=== PATIENT | female | born 1940 | race Caucasian/White ===

== ENCOUNTER 2020-09-15 11:45 | Emergency (ER) | payer OTHER ==
[~2020-09-15] VITALS: Ht 160 cm; Wt 85.7 kg
[2020-09-15 12:27] LABS: BASOPHILS ABSOLUTE AUTO 0.01 K/mm3 (0.00-0.23); BASOPHILS PERCENT AUTO 0 % (0-2); EOSINOPHILS PERCENT AUTO 0 % (0-6); Hematocrit 43.4 % (33.0-51.0); Hemoglobin 13.9 g/dL (11.5-16.0); IMMATURE GRAN ABSOLUTE AUTO 0.03 K/mm3 (0.00-0.10); IMMATURE GRAN PERCENT AUTO 0 % (0-1); LYMPHOCYTES ABSOLUTE AUTO 1.27 K/mm3 (0.84-5.20); LYMPHOCYTES PERCENT AUTO 16 % (21-46); MONOCYTES ABSOLUTE AUTO 0.69 K/mm3 (0.16-1.47); MONOCYTES PERCENT AUTO 9 % (4-13); Mean Corpuscular HGB 26.5 pg (26.0-34.0); Mean Corpuscular Volume 83 fL (80-100); Mean Platelet Volume 8.9 fL (9.1-12.4); NEUTROPHILS ABSOLUTE AUTO 5.88 K/mm3 (1.96-9.15); NEUTROPHILS PERCENT AUTO 75 % (41-73); Platelet Count 232 K/mm3 (150-400); RDW Coefficient Variation 13.1 % (11.7-14.2); Red Blood Cell Count 5.24 M/mm3 (3.80-5.20); White Blood Cell Count 7.88 K/mm3 (4.00-11.30)
[2020-09-15] MEDS ORDERED: ATORVASTATIN CA20 MG PO (12:30)
[2020-09-15] MEDS ORDERED: AMLODIPINE BESYL5 MG PO (12:30)
[2020-09-15] MEDS ORDERED: Zestril40 MG PO (12:31)
[2020-09-15] MEDS ORDERED: METO100ER PO (12:31)
[2020-09-15 12:41] LABS: Alanine Aminotransfer (ALT/SGP 32 U/L (12-78); Albumin/Globulin Ratio 0.8 (0.8-1.8); Alk Phos 70 U/L (50-136); Anion Gap 8 mmol/L (6-16); Aspartate Aminotrans (AST/SGOT 23 U/L (12-37); Bilirubin, Total 0.7 mg/dL (0.1-1.0); Blood Urea Nitrogen 11 mg/dL (8-24); Bun/Creatinine Ratio 17.2 (12.0-20.0); CO2, Blood 28 mmol/L (21-32); Calcium, Blood 7.9 mg/dL (8.5-10.1); Chloride, Blood 100 mmol/L (98-108); Creatinine, Blood 0.64 mg/dL (0.40-1.00); Globulin, Blood 3.8 g/dL (2.2-4.0); Glomerular Filtration Rate >60 (60-); Glucose, Blood 120 mg/dL (70-99); Potassium, Blood 3.4 mmol/L (3.5-5.5); Sodium, Blood 136 mmol/L (136-145); Total Protein, Blood 6.8 g/dL (6.4-8.2)
== END 2020-09-15 14:51 | disposition home or self-care (01) ==
LOC: ER 11:45
PROVIDERS: Emergency Medicine
DX: U07.1 COVID-19 (principal); E87.6 Hypokalemia; I10 Essential (primary) hypertension; E78.5 Hyperlipidemia, unspecified; Z88.8 Allergy status to other drugs, medicaments and biological substances; Z79.899 Other long term (current) drug therapy
CPT/HCPCS: 80053; 85025; 93005; 93010; 99285-25; A9270

== ENCOUNTER 2024-04-07 07:37 | Day surgery (SDC) | payer OTHER ==
[~2024-04-07] VITALS: Ht 162.6 cm; Wt 83.2 kg
[~2024-04-07 07:37] MED LIST: AMLODIPINE BESYL5 MG PO; ATORVASTATIN CA20 MG PO; Balanced Salt Epinephrine Irrigation Solution 500 mL IR SCH; Lidocaine HCl/Pf 1% 5 ML VIAL XX SCH; METO100ER PO; Moxifloxacin HCL 0.5 MG/0.1 ML 0.4MLSYR RIGHTEYE SCH; PHENYLEPHRINE\\TROPICAMIDE\\TETRACAINE OPHTHALMIC DILATING SOLN RIGHTEYE PRN; Povidone-Iodine 450 DROP/30 ML Solution ONE; Povidone-Iodine 450 DROP/30 ML Solution RIGHTEYE SCH; Tetracaine HCl/Pf 0.5% Opth Soln 4 ml ONE; Triamcinolone Inj Susp 40 MG / ML 1ML Vial INJ SCH; Triamcinolone Inj Susp 40 MG / ML 1ML Vial ONE; Zestril40 MG PO
[2024-04-07] MEDS ORDERED: Diazepam 2 MG Tab ONE (07:58)
--- NOTE | 2024-04-07 08:28 | NUR ---
04/07/24 0828 Urmila Cuevas 0802: PT REPORTS SHE TOOK HER RX 5 MG PO VALIUM AT HOME AT 0655 0815: PT REPORTS ANXIETY 05/02 822: VERBAL ORDER DR ESPITIA FOR ADDITIONAL 2 MG PO VALIUM NOW ONCE
[2024-04-07] MEDS ORDERED: METOPROLOL ER SUCCIN (08:38)
[2024-04-07] MEDS ORDERED: ALBUTEROL SULFATE HF (08:38)
[2024-04-07] MEDS ORDERED: Aspir 8181 MG PO (08:39)
[2024-04-07] MEDS ORDERED: CENTRUM SILVER1 EAC2 PO (08:41)
[2024-04-07] MEDS ORDERED: HydrALAZINE HCl 20 MG / ML 1ML Vial ONE (08:56)
[2024-04-07] MEDS ORDERED: Midazolam HCl 1MG / ML 2ML Vial ONE (08:58)
[2024-04-07] MEDS ORDERED: Tetracaine HCl 0.5% Opth Soln 15 ml RIGHTEYE ONE (08:58)
[2024-04-07 09:35] VITALS: BP 132/68
== END 2024-04-07 09:52 | disposition home or self-care (01) ==
LOC: ORSCSDS 07:37
PROVIDERS: Ophthalmology
PROC: 08RJ3JZ Replacement of Right Lens with Synthetic Substitute, Percutaneous Approach (ICD-10-PCS; principal; 2024-04-07 09:00)
DX: H25.813 Combined forms of age-related cataract, bilateral (principal); H21.81 Floppy iris syndrome; I10 Essential (primary) hypertension; E78.00 Pure hypercholesterolemia, unspecified; Z79.899 Other long term (current) drug therapy; Z79.82 Long term (current) use of aspirin
CPT/HCPCS: 82947; A9270; J0360; J2250; J3301; V2632

== ENCOUNTER 2024-04-20 08:58 | Day surgery (SDC) | payer OTHER ==
[~2024-04-20] VITALS: Ht 160 cm; Wt 82.0 kg
[~2024-04-20 08:58] MED LIST changes: +ALBUTEROL SULFATE HF; +Aspir 8181 MG PO; +CENTRUM SILVER1 EAC2 PO; +METOPROLOL ER SUCCIN; +Moxifloxacin HCL 0.5 MG/0.1 ML 0.4MLSYR LEFTEYE SCH; -Moxifloxacin HCL 0.5 MG/0.1 ML 0.4MLSYR RIGHTEYE SCH; +PHENYLEPHRINE\\TROPICAMIDE\\TETRACAINE OPHTHALMIC DILATING SOLN LEFTEYE PRN; -PHENYLEPHRINE\\TROPICAMIDE\\TETRACAINE OPHTHALMIC DILATING SOLN RIGHTEYE PRN; +Povidone-Iodine 450 DROP/30 ML Solution LEFTEYE SCH; -Povidone-Iodine 450 DROP/30 ML Solution RIGHTEYE SCH
[2024-04-20] MEDS ORDERED: Diazepam 2 MG Tab ONE (09:22)
[2024-04-20] MEDS ORDERED: HydrALAZINE HCl 20 MG / ML 1ML Vial ONE (09:45)
[2024-04-20] MEDS ORDERED: Amlodipine Bes2.5 MG PO (09:50)
[2024-04-20] MEDS ORDERED: Flonase 0.05% N16 GM (09:51)
--- NOTE | 2024-04-20 09:53 | NUR ---
ALLERGIC TO ETHER ANALPHALAXIS
[2024-04-20] MEDS ORDERED: NS 500 ML IV ONE (10:14)
[2024-04-20 10:28] VITALS: BP 121/51
--- NOTE | 2024-04-20 11:26 | NUR ---
04/20/24 1126 Frederick Mathur PT INSTRUCTED TO MONITOR B/P AT HOME AND FOLLOW UP WITH PCP/SHEEPSKIN PICKLER.
== END 2024-04-20 10:40 | disposition home or self-care (01) ==
LOC: ORSCSDS 08:58
PROVIDERS: Ophthalmology
PROC: 08RK3JZ Replacement of Left Lens with Synthetic Substitute, Percutaneous Approach (ICD-10-PCS; principal; 2024-04-20 10:30)
DX: E11.36 Type 2 diabetes mellitus with diabetic cataract (principal); H25.812 Combined forms of age-related cataract, left eye; Z96.1 Presence of intraocular lens; I10 Essential (primary) hypertension; Z79.82 Long term (current) use of aspirin; Z79.899 Other long term (current) drug therapy
CPT/HCPCS: 82947; A9270; J0360; J3301; J7040; V2632

== ENCOUNTER 2024-09-21 05:03 | Inpatient (IN) | payer OTHER ==
[2024-09-21] VITALS (7 sets, daily range): BP systolic 112–169; BP diastolic 81–107
[~2024-09-21] VITALS: Ht 162.6 cm; Wt 81.5 kg
[~2024-09-21 05:03] MED LIST changes: +Amlodipine Bes2.5 MG PO; -Balanced Salt Epinephrine Irrigation Solution 500 mL IR SCH; +Flonase 0.05% N16 GM; -Lidocaine HCl/Pf 1% 5 ML VIAL XX SCH; -METOPROLOL ER SUCCIN; +METOPROLOL ER SUCCIN PO; -Moxifloxacin HCL 0.5 MG/0.1 ML 0.4MLSYR LEFTEYE SCH; -PHENYLEPHRINE\\TROPICAMIDE\\TETRACAINE OPHTHALMIC DILATING SOLN LEFTEYE PRN; -Povidone-Iodine 450 DROP/30 ML Solution LEFTEYE SCH; -Povidone-Iodine 450 DROP/30 ML Solution ONE; -Tetracaine HCl/Pf 0.5% Opth Soln 4 ml ONE; -Triamcinolone Inj Susp 40 MG / ML 1ML Vial INJ SCH; -Triamcinolone Inj Susp 40 MG / ML 1ML Vial ONE
[2024-09-21] MEDS ORDERED: Diltiazem HCl 5 MG / ML 5ML Vial IV ONE (05:25)
[2024-09-21 05:38] LABS: BASOPHILS ABSOLUTE AUTO 0.03 K/mm3 (0.00-0.23); BASOPHILS PERCENT AUTO 1 % (0-2); EOSINOPHILS ABSOLUTE AUTO 0.10 K/mm3 (0.00-0.68); EOSINOPHILS PERCENT AUTO 2 % (0-6); Hematocrit 43.1 % (33.0-51.0); Hemoglobin 13.6 g/dL (11.5-16.0); IMMATURE GRAN ABSOLUTE AUTO 0.01 K/mm3 (0.00-0.10); IMMATURE GRAN PERCENT AUTO 0 % (0-1); LYMPHOCYTES ABSOLUTE AUTO 2.94 K/mm3 (0.84-5.20); LYMPHOCYTES PERCENT AUTO 45 % (21-46); MONOCYTES ABSOLUTE AUTO 0.50 K/mm3 (0.16-1.47); MONOCYTES PERCENT AUTO 8 % (4-13); Mean Corpuscular HGB Conc 31.6 g/dL (31.5-36.5); Mean Corpuscular Volume 85 fL (80-100); NEUTROPHILS ABSOLUTE AUTO 2.98 K/mm3 (1.96-9.15); NEUTROPHILS PERCENT AUTO 45 % (41-73); NRBC ABSOLUTE 0.00 K/mm3 (0.00-0.02); NRBC Auto 0.0 /100 WBC (0.0-0.2); Platelet Count 280 K/mm3 (150-400); RDW Coefficient Variation 13.2 % (11.7-14.2); RDW Standard Deviation 40.9 fL (35.1-46.3)
[2024-09-21 05:52] LABS: Alanine Aminotransfer (ALT/SGP 20.0 U/L (12-78); Albumin, Blood 3.2 g/dL (3.4-5.0); Albumin/Globulin Ratio 0.9 (0.8-1.8); Anion Gap 7.0 mmol/L (3-11); Aspartate Aminotrans (AST/SGOT 17.0 U/L (12-37); Bilirubin, Total 0.4 mg/dL (0.1-1.0); Blood Urea Nitrogen 13.0 mg/dL (8-24); CO2, Blood 27.0 mmol/L (21-32); Calcium, Blood 8.0 mg/dL (8.5-10.1); Chloride, Blood 110.0 mmol/L (98-108); Creatinine, Blood 0.73 mg/dL (0.40-1.00); Globulin, Blood 3.6 g/dL (2.2-4.0); Glucose, Blood 161.0 mg/dL (70-99); Potassium, Blood 3.5 mmol/L (3.5-5.5); Sodium, Blood 140.0 mmol/L (136-145); Total Protein, Blood 6.8 g/dL (6.4-8.2)
[2024-09-21] MEDS ORDERED: Enoxaparin 80 MG/0.8 ML SYR SC SCH (07:30)
--- NOTE | 2024-09-21 09:07 | NUR ---
ARRIVAL NOTE: PT ARRIVES TO UNIT AND WAS TRANSFFERED TO OUR BED BY AMBULATING WITH NURSE ASSIST AT BEDSIDE. VITAL SIGNS STABLE. PT DENIED CHEST PAIN/PRESSURE OR FEELING SHORT OF BREATH. SATTING >92% ON ROOM AIR. PATIENT HAS CALL LIGHT WITHIN REACH, BED IN LOWEST POSITION & STATING NOTHING ELSE IS NEEDED AT THIS TIME.
[2024-09-21] MEDS ORDERED: XDEMVY10 ML (09:17)
--- NOTE | 2024-09-21 13:55 | NUR ---
MD CONTACTED: THIS RN CONTACTED MD REGARDING PT MEDICATIONS BEING RECONCILLED. MD WAS ALSO NOTIFIED THAT PATIENT WOULD LIKE TO BE DNI. GAVE VERBAL ORDER TO CHANGE STATUS.
--- NOTE | 2024-09-21 15:59 | NUR ---
ROUNDED: ROUDNED ON PT TO NOTIFY ABOUT HER RECEIVING A BED AT [facility]. PETER AT BED WAS NOTIFIED WELL. PT AWARE WE ARE WAITING TRANSPORT AND ONCE THAT IS INTIATED THE TRANSFER SHOULD HAPPEN SHORTLY AFTER THAT.
--- NOTE | 2024-09-21 17:05 | NUR ---
SHIFT SUMMARY: PATIENT IS ALERT AND ORIETNED X4 & COOPERATIVE WITH HER CARE, IS ABLE TO MAKE NEEDS KNOW & USES CALL LIGHT APPROPRIATELY. SATTING >92% ON ROOM AIR. ON TELE SHOWING AFIB/FLUTTER WITH A DILT DRIP RUNNING AT 10. HEART RATE 90-120,OCCASIONALLY DOES TACH UP INTO 150-180 WHEN USING BEDSIDE COMMODE. PT HAD AN ECHO DONE, CHECK CHART FOR MORE RESULTS. PT UPDATED CODE STATUS AND IS NOW DNI. PT HAD FAMILY THROUGHOUT THE SHIFT. HAS CALL LIGHT WITHIN REACH, BED IN LOWEST POSITION & STATING NOTHIG ELSE IS NEEDED ATH THIS TIME.
[2024-09-22 03:54] VITALS: BP 129/91
[2024-09-22 04:00] LABS: BASOPHILS ABSOLUTE AUTO 0.05 K/mm3 (0.00-0.23); BASOPHILS PERCENT AUTO 1 % (0-2); EOSINOPHILS ABSOLUTE AUTO 0.08 K/mm3 (0.00-0.68); EOSINOPHILS PERCENT AUTO 1 % (0-6); Hematocrit 42.6 % (33.0-51.0); Hemoglobin 13.6 g/dL (11.5-16.0); IMMATURE GRAN ABSOLUTE AUTO 0.01 K/mm3 (0.00-0.10); IMMATURE GRAN PERCENT AUTO 0 % (0-1); LYMPHOCYTES ABSOLUTE AUTO 2.54 K/mm3 (0.84-5.20); LYMPHOCYTES PERCENT AUTO 35 % (21-46); MONOCYTES ABSOLUTE AUTO 0.54 K/mm3 (0.16-1.47); MONOCYTES PERCENT AUTO 8 % (4-13); Mean Corpuscular HGB Conc 31.9 g/dL (31.5-36.5); Mean Corpuscular Volume 84 fL (80-100); NEUTROPHILS ABSOLUTE AUTO 4.01 K/mm3 (1.96-9.15); NEUTROPHILS PERCENT AUTO 56 % (41-73); NRBC ABSOLUTE 0.00 K/mm3 (0.00-0.02); NRBC Auto 0.0 /100 WBC (0.0-0.2); Platelet Count 278 K/mm3 (150-400); RDW Coefficient Variation 13.2 % (11.7-14.2); RDW Standard Deviation 41.1 fL (35.1-46.3)
[2024-09-22 04:32] LABS: Anion Gap 7.0 mmol/L (3-11); Blood Urea Nitrogen 12.0 mg/dL (8-24); CO2, Blood 27.0 mmol/L (21-32); Calcium, Blood 8.1 mg/dL (8.5-10.1); Chloride, Blood 108.0 mmol/L (98-108); Creatinine, Blood 0.67 mg/dL (0.40-1.00); Glucose, Blood 138.0 mg/dL (70-99); Potassium, Blood 3.8 mmol/L (3.5-5.5); Sodium, Blood 138.0 mmol/L (136-145)
--- NOTE | 2024-09-22 05:13 | NUR ---
SHIFT SUMMARY - A/OX4, PLEASANT AND COOPERATIVE WITH CARE, FOLLOWS COMMANDS, ENDORSES MUSCULAR PAIN IN NECK AND SHOULDERS BUT DENIES NEED FOR MEDICATION. ON CONTINUOUS CARDIAC MONITORING, IN AFIB/FLUTTER, HR IN 80 S AT REST, UP TO 140 S WITH ACTIVITY. HR DROPPED TO 60 S, CARDIZEM DRIP TITRATED TO 5 AT 2134. PT DENIES CHEST PAIN/PRESSURE AT THIS TIME. ON RA, SATS ABOVE 95%. PT AMBULATING IN ROOM INDEPENDENTLY W/ SBA FOR LINE MANAGEMENT. LEFT WRIST IV INFILTRATED, SITE SWOLLEN, WARM, RED, IV REMOVED, NEW IV PLACED IN RIGHT WRIST. PHARMACY CONSULTED.
--- NOTE | 2024-09-22 07:16 | NUR ---
ASSUMPTION NOTE: THIS RN TO ASSUME CARE OF PT. PATIENT IS SITTING UP IN BED WATHCING TV. VITAL SIGNS STABLE AND DENIED ANY COMPLAINS OF CHEST PAIN/PRESSURE OR FEELING SHORT OF BREATH. HAS CALL LIGHT WITHIN REACH, BED IN LOWEST POSITION & STATING NOTHING ELSE IS NEEDED AT THIS TIME.
[2024-09-22 07:17] VITALS: BP 107/87
--- NOTE | 2024-09-22 08:55 | NUR ---
ROUNDED: ROUNDED,SPOKE WITH PT AND GAVE UPDATE ON INCREASING MEDICATION DOSE TO CONTROL HEART RATE. GAVE VERBAL ORDER TO TURN OFF DILT ONCE METOPROLOL GETS INTO SYSTEM. PT AWARE POSSIBLE DISCHARGE TODAY SOMETIME.
[2024-09-22] MEDS ORDERED: Multivitamins/Minerals 1 Tab PO SCH (09:00)
--- NOTE | 2024-09-22 12:00 | NUR ---
Spiritual care visit conducted. The patient is sitting up in bed and laert. She immediately tells me about her strong Jew layton and about how important it is to her especially in challenging medical situations. She talks about her solid orthodox support ([facility]) and how she has family and friends praying and pulling for her. 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 She clearly gains encouragement by hearing the scripture and prayer, both of which I supplied. I will continue to remain available to the patient and family.
--- NOTE | 2024-09-22 17:26 | NUR ---
SHIFT SUMMARY: PATIENT IS ALERT AND ORIENTED X4 AND USES CALL LIGHT APPROPRIATELY. ON TELE SHOWING AFIB/FLUTTER WITH RATE BETWEEN 90-150'S OCCASINALLY WHEN UP SHE DOES TACH UP. DENIES ANY SYMPTOMS WHEN HEART RATE INCREASES. SATTING >92% ON ROOM AIR. PATIENT WAS ABLE TO SHOWER TODAY,HAD VISIOTORS THROUGHOUT THE SHIFT. METOPROLOL WAS INCREASED TODAY TO 100MG FROM 50MG. AWARE THAT PLAN WILL BE LOOKING AT DISCHARGE TOMORROW. PATIENT IS NOW MEDICAL WITH TELE STATUS. HAS CALL LIGHT WITHIN REACH, BED IN LOWEST POSITION & STATING NOTHING ELSE IS NEEDED AT THIS TIME.
[2024-09-22 17:29] VITALS: BP 140/90
[2024-09-22 19:30] VITALS: BP 128/70
[2024-09-22 23:36] VITALS: BP 125/87
[2024-09-23 03:50] VITALS: BP 145/83
[2024-09-23 04:25] LABS: BASOPHILS ABSOLUTE AUTO 0.04 K/mm3 (0.00-0.23); BASOPHILS PERCENT AUTO 1 % (0-2); EOSINOPHILS ABSOLUTE AUTO 0.14 K/mm3 (0.00-0.68); EOSINOPHILS PERCENT AUTO 2 % (0-6); Hematocrit 44.1 % (33.0-51.0); Hemoglobin 13.9 g/dL (11.5-16.0); IMMATURE GRAN ABSOLUTE AUTO 0.00 K/mm3 (0.00-0.10); IMMATURE GRAN PERCENT AUTO 0 % (0-1); LYMPHOCYTES ABSOLUTE AUTO 2.83 K/mm3 (0.84-5.20); LYMPHOCYTES PERCENT AUTO 43 % (21-46); MONOCYTES ABSOLUTE AUTO 0.60 K/mm3 (0.16-1.47); MONOCYTES PERCENT AUTO 9 % (4-13); Mean Corpuscular HGB Conc 31.5 g/dL (31.5-36.5); Mean Corpuscular Volume 84 fL (80-100); NEUTROPHILS ABSOLUTE AUTO 2.91 K/mm3 (1.96-9.15); NEUTROPHILS PERCENT AUTO 45 % (41-73); NRBC ABSOLUTE 0.00 K/mm3 (0.00-0.02); NRBC Auto 0.0 /100 WBC (0.0-0.2); Platelet Count 288 K/mm3 (150-400); RDW Coefficient Variation 13.2 % (11.7-14.2); RDW Standard Deviation 40.9 fL (35.1-46.3)
[2024-09-23 04:41] LABS: Anion Gap 7.0 mmol/L (3-11); Blood Urea Nitrogen 17.0 mg/dL (8-24); CO2, Blood 26.0 mmol/L (21-32); Calcium, Blood 8.5 mg/dL (8.5-10.1); Chloride, Blood 107.0 mmol/L (98-108); Creatinine, Blood 0.77 mg/dL (0.40-1.00); Glucose, Blood 185.0 mg/dL (70-99); Potassium, Blood 4.4 mmol/L (3.5-5.5); Sodium, Blood 136.0 mmol/L (136-145)
--- NOTE | 2024-09-23 05:48 | NUR ---
SHIFT SUMMARY - A/OX4, PLEASANT AND COOPERATIVE WITH CARE, FOLLOWS COMMANDS, DENIES PAIN. ON CONTINUOUS CARDIAC MONITORING, IN AFIB/FLUTTER, HR IN 80 S AT REST, UP TO 130 S WITH ACTIVITY. INCREASED PO METOPROLOL YESTERDAY FOR RATE CONTROL. ON RA, SATS ABOVE 95%. PT AMBULATING IN ROOM INDEPENDENTLY W/ SBA. NO ACUTE EVENTS THIS SHIFT.
[2024-09-23 07:18] VITALS: BP 142/87
[2024-09-23 16:28] VITALS: BP 111/78
[2024-09-23] MEDS ORDERED: Diltiazem HCl 180 MG Cap.CD PO SCH (18:00)
--- NOTE | 2024-09-23 18:33 | NUR ---
SHIFT NOTE: PT HR CONTINUES TO BE TACHY T/O DAY. MD NOTIFIED, PO ILDAZEM INCREASED TO BETTER MANAGE HR. PT ABLE TO MAKE NEEDS KNOWN AND CALLS APPROPRIATELY.
[2024-09-23 19:29] VITALS: BP 114/74
[2024-09-23 22:53] VITALS: BP 119/73
--- NOTE | 2024-09-23 22:53 | NUR ---
TRANSFER OF CARE PT A&O X4, ANXIOUS AT TIMES, COOPERATIVE TO CARE. HR IN THE 80'S-90'S, AFIB/FLUTTER, SHE DNEIES ANY CP/PRESSURE, NUMB/TINGLING, SBP STABLE. O2 >90% ON RA, SHE DENIES ANY SOB. PT UP TO BATHROOM WITH SBA-IND. PT MEDICAL STATUS WITH TELE. PT HAD ROOM AVAILABLE ON MEDICAL FLOOR. REPORT GIVEN TO MEDICAL FLOOR RN. PT TRANSFERED TO MEDICAL FLOOR VIA WHEELCHAIR WITH THIS RN AND PCT.
[2024-09-23 23:58] VITALS: BP 110/61
[2024-09-24 04:16] VITALS: BP 118/73
--- NOTE | 2024-09-24 04:57 | NUR ---
SHIFT SUMMARY: Pt is admitted for afib with RVR and is a DNI. is alert and able to make needs known. ADLs have been mostly IND. denies pain or discomfort when asked. Valentin reported afib in the 80s. Also noted a rate decrease into the upper 30s at one point. When LN checked on her she was sound asleep but woke up during checking on her. When she woke up her rate went back into the 70s remained in afib. Notified Dr Lopez and informed him of medication changes over the last 24h. He gave T.O. to decrease metoprolol back to home doses as it was also being covered by the [facility] for rate control.
[2024-09-24 07:34] VITALS: BP 112/56
[2024-09-24 11:45] VITALS: BP 147/82
[2024-09-24] MEDS ORDERED: DILTIAZEM 24HR180 M3 PO (16:09)
--- NOTE | 2024-09-24 16:37 | NUR ---
DISCHARGE PT AOX4, COOPERATIVE, ABLE TO MAKE NEEDS KNOWN. PT IS IND AT BASELINE. TELE DC'D BY DESTINATION IMAGINATION COORDINATOR, IV DC'D BY DESTINATION IMAGINATION COORDINATOR. THIS RN WENT OVER DC PAPERWORK. PT WAS [facility]SP[facility] BY [facility]. ALL BELONGINGS WENT WITH PT.
== END 2024-09-24 16:27 | disposition home or self-care (01) | DRG 310 ==
LOC: ER 05:03 → PCU 07:53 → MEDS 09-23 12:50 → PCU 09-23 22:47 → MEDS 09-24 16:27
PROVIDERS: Emergency Medicine; ADMIT Internal Medicine
DX: I48.91 Unspecified atrial fibrillation (principal); I10 Essential (primary) hypertension; E78.5 Hyperlipidemia, unspecified; E66.9 Obesity, unspecified; K59.09 Other constipation; K21.9 Gastro-esophageal reflux disease without esophagitis; I05.0 Rheumatic mitral stenosis; E11.9 Type 2 diabetes mellitus without complications; I95.9 Hypotension, unspecified; Z88.0 Allergy status to penicillin; Z88.5 Allergy status to narcotic agent; Z88.8 Allergy status to other drugs, medicaments and biological substances; Z79.899 Other long term (current) drug therapy; Z79.51 Long term (current) use of inhaled steroids; Z79.82 Long term (current) use of aspirin; Z90.710 Acquired absence of both cervix and uterus; Z90.89 Acquired absence of other organs; Z68.31 Body mass index [BMI] 31.0-31.9, adult
CPT/HCPCS: 36415; 71045; 80048; 80053; 84443; 84484; 85025; 93005; 93010; 93306; 96365; 96366; 96372; 96375; 96376; 99285-25; A9270; G0378; J1650

== ENCOUNTER 2024-10-20 11:23 | Inpatient (IN) | payer OTHER ==
[~2024-10-20] VITALS: Ht 162.6 cm; Wt 82.7 kg
[~2024-10-20 11:23] MED LIST changes: +DILTIAZEM 24HR180 M3 PO; +XDEMVY10 ML
[2024-10-20 11:45] LABS: BASOPHILS ABSOLUTE AUTO 0.04 K/mm3 (0.00-0.23); BASOPHILS PERCENT AUTO 1 % (0-2); EOSINOPHILS ABSOLUTE AUTO 0.06 K/mm3 (0.00-0.68); EOSINOPHILS PERCENT AUTO 1 % (0-6); Hematocrit 42.3 % (33.0-51.0); Hemoglobin 13.4 g/dL (11.5-16.0); IMMATURE GRAN ABSOLUTE AUTO 0.01 K/mm3 (0.00-0.10); IMMATURE GRAN PERCENT AUTO 0 % (0-1); LYMPHOCYTES ABSOLUTE AUTO 2.29 K/mm3 (0.84-5.20); LYMPHOCYTES PERCENT AUTO 28 % (21-46); MONOCYTES ABSOLUTE AUTO 0.70 K/mm3 (0.16-1.47); MONOCYTES PERCENT AUTO 9 % (4-13); Mean Corpuscular HGB Conc 31.7 g/dL (31.5-36.5); Mean Corpuscular Volume 85 fL (80-100); NEUTROPHILS ABSOLUTE AUTO 5.08 K/mm3 (1.96-9.15); NEUTROPHILS PERCENT AUTO 62 % (41-73); NRBC ABSOLUTE 0.00 K/mm3 (0.00-0.02); NRBC Auto 0.0 /100 WBC (0.0-0.2); Platelet Count 266 K/mm3 (150-400); RDW Coefficient Variation 13.4 % (11.7-14.2); RDW Standard Deviation 41.6 fL (35.1-46.3)
[2024-10-20] MEDS ORDERED: NS 500 ML IV SCH (11:55)
[2024-10-20] MEDS ORDERED: Metoprolol Tartrate 1 MG/ML 5 ML VIAL IV PRN (11:55)
[2024-10-20 12:18] LABS: Alanine Aminotransfer (ALT/SGP 24.0 U/L (12-78); Albumin, Blood 3.3 g/dL (3.4-5.0); Albumin/Globulin Ratio 0.8 (0.8-1.8); Anion Gap 7.0 mmol/L (3-11); Aspartate Aminotrans (AST/SGOT 19.0 U/L (12-37); Bilirubin, Total 1.0 mg/dL (0.1-1.0); Blood Urea Nitrogen 11.0 mg/dL (8-24); CO2, Blood 27.0 mmol/L (21-32); Calcium, Blood 8.4 mg/dL (8.5-10.1); Chloride, Blood 108.0 mmol/L (98-108); Creatinine, Blood 0.73 mg/dL (0.40-1.00); Globulin, Blood 4.1 g/dL (2.2-4.0); Glucose, Blood 141.0 mg/dL (70-99); Magnesium, Blood 2.1 mg/dL (1.6-2.4); Potassium, Blood 3.9 mmol/L (3.5-5.5); Sodium, Blood 138.0 mmol/L (136-145); Total Protein, Blood 7.4 g/dL (6.4-8.2)
[2024-10-20 16:24] VITALS: BP 148/84
--- NOTE | 2024-10-20 16:26 | NUR ---
ARRIVAL: PATIENT ARRIVES TO UNIT AND STOOD AND TRANSFFERED TO BED. VITAL SIGNS STABLE AND PATIENT ORIENTED TO OUR ROOM.
[2024-10-20] MEDS ORDERED: Insulin Human Lispro 100 Units/ML 3ML Syringe SC SCH (16:30)
--- NOTE | 2024-10-20 18:02 | NUR ---
SHIFT SUMMARY: PATIENT IS ALERT AND ORIENTED X4 & COOPERATIVE WITH HER CARE IS ABLE TO MAKE NEED SKNOWN & USES CALL LIGHT APPRORIATELY. PATIENT IS SATTING >92% ON ROOM AIR DENIED ANY FEELING OF SHORTNESS OF BREATH. IS ON TELE SHOWING AFIB WITH RATE IN 90'S OCCASINALLY DOES TACH UP INTO 130 WITH EXERTION. BLOOD PRESSURE MAP >65. PATIENT IS INDEPENDENT IN THE ROOM BUT ORIENTED TO CALL LIGHT PRIOR TO GETTING UP DUE TO HIGH HEART RATE. PATIENT HAD FAMILY AT [facility] UPON ARRIVAL. PATIENT BLOOD SUGAR WAS BELOW PROTOCOL AND WAS NOT NEEDING ANY INSULIN. PATIENT DENIED WANTING ANY EVEN IF HER BLOOD SUGAR WAS HIGHER THAN 150 BEING SHE DOES NOT TAKE ANYTHING ATH OME FOR IT, SIMPLY CONTROLS IT VIA DIET. PATIENT HAS CALL LIGHT WITHIN REACH, BED IN LOWEST POSITION & STATING NOTHING ELSE IS NEEDED AT THIS TIME.
[2024-10-20 19:35] VITALS: BP 143/88
[2024-10-20] MEDS ORDERED: Enoxaparin 80 MG/0.8 ML SYR SC SCH (21:00)
[2024-10-21] VITALS (8 sets, daily range): BP systolic 116–169; BP diastolic 72–115
[2024-10-21 04:22] LABS: BASOPHILS ABSOLUTE AUTO 0.05 K/mm3 (0.00-0.23); BASOPHILS PERCENT AUTO 1 % (0-2); EOSINOPHILS ABSOLUTE AUTO 0.14 K/mm3 (0.00-0.68); EOSINOPHILS PERCENT AUTO 2 % (0-6); Hematocrit 39.7 % (33.0-51.0); Hemoglobin 12.5 g/dL (11.5-16.0); IMMATURE GRAN ABSOLUTE AUTO 0.02 K/mm3 (0.00-0.10); IMMATURE GRAN PERCENT AUTO 0 % (0-1); LYMPHOCYTES ABSOLUTE AUTO 1.84 K/mm3 (0.84-5.20); LYMPHOCYTES PERCENT AUTO 28 % (21-46); MONOCYTES ABSOLUTE AUTO 0.66 K/mm3 (0.16-1.47); MONOCYTES PERCENT AUTO 10 % (4-13); Mean Corpuscular HGB Conc 31.5 g/dL (31.5-36.5); Mean Corpuscular Volume 86 fL (80-100); NEUTROPHILS ABSOLUTE AUTO 3.85 K/mm3 (1.96-9.15); NEUTROPHILS PERCENT AUTO 59 % (41-73); NRBC ABSOLUTE 0.00 K/mm3 (0.00-0.02); NRBC Auto 0.0 /100 WBC (0.0-0.2); Platelet Count 246 K/mm3 (150-400); RDW Coefficient Variation 13.5 % (11.7-14.2); RDW Standard Deviation 41.8 fL (35.1-46.3)
[2024-10-21 04:43] LABS: Anion Gap 8.0 mmol/L (3-11); Blood Urea Nitrogen 11.0 mg/dL (8-24); CO2, Blood 28.0 mmol/L (21-32); Calcium, Blood 7.8 mg/dL (8.5-10.1); Chloride, Blood 108.0 mmol/L (98-108); Creatinine, Blood 0.63 mg/dL (0.40-1.00); Glucose, Blood 122.0 mg/dL (70-99); Potassium, Blood 3.6 mmol/L (3.5-5.5); Sodium, Blood 140.0 mmol/L (136-145)
--- NOTE | 2024-10-21 04:55 | NUR ---
SHIFT SUMMARY - A/OX4, DENIES PAIN, COOPERATIVE WITH CARE. ON RA, SATS ABOVE 92%. ON CONTINUOUS CARDIAC MONITORING. AFIB, BP ELEVATED IN 150 S. HR IN 90 S BUT ELEVATING UP TO 150 S WITH ACTIVITY. HR RECOVERS QUICKLY. PT IS INDEPENDENT IN ROOM BUT CALLS FOR SBA TO BATHROOM DUE TO HR. SHE REMAINS ASYMPTOMATIC. NO ACUTE EVENTS THIS SHIFT.
[2024-10-21] MEDS ORDERED: Amiodarone HCl 450 MG in NS 250 ML IV SCH (09:55)
--- NOTE | 2024-10-21 12:03 | NUR ---
UPDATE CARDIOLOGY CONSULTED TODAY, PT STARTED ON AMIO GTT, SEE EMAR. PT HR AFIB/FLUT 90-110'S WHILE AT REST. PT HR INCREASED TO 130-150'S WHEN PT SAT UP AT EDGE OF BED TO EAT LUNCH, AMIO GTT STILL RUNNING PER ORDER. PT DENIES CHEST PAIN/PRESSURE, LIGHTHEADEDNESS. VSS.
[2024-10-21 14:51] LABS: Source, Urine Clean Catch
[2024-10-21 15:01] LABS: Bilirubin, Urine Neg (Neg); Color, Urine Yellow (P-Yellow); Glucose Qualitative, Urine Neg (Neg); Ketones, Urine Neg (Neg); Leukocyte Esterase, Urine 3+ (Neg); Protein, Urine 2+ (Neg); Specific Gravity, Urine 1.015 (1.003-1.022); Urobilinogen, Urine 1+ (Normal)
[2024-10-21 15:18] LABS: White Blood Cells, Urine TNTC /hpf (0-5)
--- NOTE | 2024-10-21 19:30 | NUR ---
SHIFT SUMMARY PT A/OX4 AND COOPERATIVE OF CARE. PT INDEPENDENT IN BED AND SBA IN ROOM, TOLERATES WELL. PT HR AFIB/AFLUT WITH RATES 90-130'S WHILE AT REST AT BEGINNING OF SHIFT. HR UP TO 150'S WITH EXERTION. CARDIOLOGY CONSULTED AND PT STARTED ON AMIO GTT. PT HR GRADUALLY TRENDING DOWN TO 90-110'S TOWARD END OF SHIFT. HR 130'S OCCASSIONALLY WITH EXERTION TOWARD END OF DAY SHIFT. OTHER VSS WITH O2 SATS IN THE 90'S ON RA. NO REPORT OF CHEST PAIN/PRESSURE. NO REPORT OF SOB/DYSPNEA THROUGHOUT SHIFT.
--- NOTE | 2024-10-21 23:02 | NUR ---
ASSUMPTION OF CARE ASSUMED PT'S CARE AT 1900,PT WIDE AWAKE RESTING IN BED.BEDSIDE REPORT COMPLETED.PLAN OF CARE REVIEWED.PT REPORT FLANK PAIN .REPORTS THAT THE PAIN IS MILD AND HAS BEEN PRESENT FROM A PREVIOUS INJURY.DENIES FURTHER NEEDS AT THIS TIME.CALL LIGHT AND PT'S ITEMS WITHIN REACH.MONITORING ONGOING PER CAREPLAN.
[2024-10-22] VITALS (9 sets, daily range): BP systolic 123–167; BP diastolic 85–114
[2024-10-22 04:03] LABS: BASOPHILS ABSOLUTE AUTO 0.04 K/mm3 (0.00-0.23); BASOPHILS PERCENT AUTO 1 % (0-2); EOSINOPHILS ABSOLUTE AUTO 0.12 K/mm3 (0.00-0.68); EOSINOPHILS PERCENT AUTO 2 % (0-6); Hematocrit 38.5 % (33.0-51.0); Hemoglobin 12.2 g/dL (11.5-16.0); IMMATURE GRAN ABSOLUTE AUTO 0.01 K/mm3 (0.00-0.10); IMMATURE GRAN PERCENT AUTO 0 % (0-1); LYMPHOCYTES ABSOLUTE AUTO 2.06 K/mm3 (0.84-5.20); LYMPHOCYTES PERCENT AUTO 30 % (21-46); MONOCYTES ABSOLUTE AUTO 0.64 K/mm3 (0.16-1.47); MONOCYTES PERCENT AUTO 9 % (4-13); Mean Corpuscular HGB Conc 31.7 g/dL (31.5-36.5); Mean Corpuscular Volume 85 fL (80-100); NEUTROPHILS ABSOLUTE AUTO 3.91 K/mm3 (1.96-9.15); NEUTROPHILS PERCENT AUTO 58 % (41-73); NRBC ABSOLUTE 0.00 K/mm3 (0.00-0.02); NRBC Auto 0.0 /100 WBC (0.0-0.2); Platelet Count 259 K/mm3 (150-400); RDW Coefficient Variation 13.3 % (11.7-14.2); RDW Standard Deviation 41.5 fL (35.1-46.3)
[2024-10-22 04:25] LABS: Anion Gap 8.0 mmol/L (3-11); Blood Urea Nitrogen 15.0 mg/dL (8-24); CO2, Blood 27.0 mmol/L (21-32); Calcium, Blood 8.2 mg/dL (8.5-10.1); Chloride, Blood 106.0 mmol/L (98-108); Creatinine, Blood 0.75 mg/dL (0.40-1.00); Glucose, Blood 145.0 mg/dL (70-99); Potassium, Blood 3.7 mmol/L (3.5-5.5); Sodium, Blood 137.0 mmol/L (136-145)
--- NOTE | 2024-10-22 06:21 | NUR ---
PT MONITORED DURING THE SHIFT.NO ACUTE EVENTS NOTED DURING THE SHIFT.HR CONTROLLED IN THE 80'S-90'S ON AMIODARONE AT 16.7ML/HR.PT AWAKE AT THIS TIME,DENIES PAIN,DENIES NEEDS.CALL LIGHT AND PT'S ITEMS WITHIN REACH.MONITORING ONGOING PER CAREPLAN.
--- NOTE | 2024-10-22 10:55 | NUR ---
AMIO GTT FINISHED, CARDIOLOOGIST NOTIFIED. PO ANGEL DE LA ROSAED, SEE EMAR.
--- NOTE | 2024-10-22 12:33 | NUR ---
UPDATE PT AMBULATED IN ROOM, ROUGHLY 30FT. PT USED HER CALL LIGHT TO NOTIFY THIS RN THAT SHE FEELS SOB AFTER AMBULATING. PT HR STILL IN AFIB WITH CONTROLED RATE RANGING 70-100 WHILE UP IN ROOM.
[2024-10-22] MEDS ORDERED: Albuterol HFA200 ACT/6.7 GM INH INH PRN (13:30)
--- NOTE | 2024-10-22 13:36 | NUR ---
PT USED PULL STRING IN BATHROOM AFTER VOIDING IN HAT. PT REPORTED TO CROWN BLOCKER THAT SHE IS CONCERNED ABOUT URINE. THIS RN TO ROOM TO ASSESS. URINE CLOUDY AND PINK TINGED. NOTIFIED. UA ORDERED AND CLEAN HAT IN PLACE FOR UA.
[2024-10-22 15:25] LABS: Source, Urine Clean Catch
[2024-10-22 15:28] LABS: Bilirubin, Urine Neg (Neg); Color, Urine Amber (P-Yellow); Glucose Qualitative, Urine 3+ (Neg); Ketones, Urine Neg (Neg); Leukocyte Esterase, Urine 3+ (Neg); Protein, Urine 2+ (Neg); Specific Gravity, Urine 1.015 (1.003-1.022); Urobilinogen, Urine NORM (Normal)
--- NOTE | 2024-10-22 18:37 | NUR ---
SHIFT SUMAM PT A/OX 4 AND COOPERATIVE OF CARE. PT ABLE TO EXPRESS NEEDS AND CALLS APPROPIATE. PT INDEPENDENT IN BED AND SBA WHEN UP IN ROOM. PT HR REMAINED FLUT WITH CONTROLED REATES 80-100'S, PT HAD ONE BRIEF HR OF 130 WHEN UP IN ROOM THAT DID NOT LAST LONG. OTHER VSS THROUGHOUT SHIFT WITH O2 SATS IN THE 90'S ON RA. PT DID REPORT SOB WITH AMBULATION WHILE IN ROOM, SUBSIDES WHEN AT REST. NO REPORT OF CHEST PAIN/PRESSURE THROUGHOUT SHIFT. PT STARTED ON PO AMIO THIS SHIFT PER ORDER. PT URINE PINK TINGED THIS SHIFT, NOTIFIED AND NEW UA OBTAINED.
--- NOTE | 2024-10-22 19:45 | NUR ---
ASSUMPTION OF CARE ASSUMED PT'S CARE AT 1900,BEDSIDE REPORT COMPLETED.PT SITTING AT THE EDGE OF THE BED.PLAN OF CARE REVIEWED.PT DENIES PAIN,REPORTS SOB WITH ACTIVITY.HR IRREGULAR 96-120'S AT THIS TIME.PT DENIES FURTHER NEEDS AT THIS TIME.CALL LIGHT AND PT'S ITEMS WITHIN REACH.MONITORING ONGOING PER CAREPLAN.
[2024-10-23 00:15] VITALS: BP 139/87
[2024-10-23 04:05] LABS: BASOPHILS ABSOLUTE AUTO 0.03 K/mm3 (0.00-0.23); BASOPHILS PERCENT AUTO 0 % (0-2); EOSINOPHILS ABSOLUTE AUTO 0.08 K/mm3 (0.00-0.68); EOSINOPHILS PERCENT AUTO 1 % (0-6); Hematocrit 39.5 % (33.0-51.0); Hemoglobin 12.5 g/dL (11.5-16.0); IMMATURE GRAN ABSOLUTE AUTO 0.01 K/mm3 (0.00-0.10); IMMATURE GRAN PERCENT AUTO 0 % (0-1); LYMPHOCYTES ABSOLUTE AUTO 1.84 K/mm3 (0.84-5.20); LYMPHOCYTES PERCENT AUTO 26 % (21-46); MONOCYTES ABSOLUTE AUTO 0.65 K/mm3 (0.16-1.47); MONOCYTES PERCENT AUTO 9 % (4-13); Mean Corpuscular HGB Conc 31.6 g/dL (31.5-36.5); Mean Corpuscular Volume 84 fL (80-100); NEUTROPHILS ABSOLUTE AUTO 4.46 K/mm3 (1.96-9.15); NEUTROPHILS PERCENT AUTO 63 % (41-73); NRBC ABSOLUTE 0.00 K/mm3 (0.00-0.02); NRBC Auto 0.0 /100 WBC (0.0-0.2); Platelet Count 247 K/mm3 (150-400); RDW Coefficient Variation 13.3 % (11.7-14.2); RDW Standard Deviation 40.7 fL (35.1-46.3)
[2024-10-23 04:22] LABS: Anion Gap 8.0 mmol/L (3-11); Blood Urea Nitrogen 13.0 mg/dL (8-24); CO2, Blood 28.0 mmol/L (21-32); Calcium, Blood 8.2 mg/dL (8.5-10.1); Chloride, Blood 107.0 mmol/L (98-108); Creatinine, Blood 0.75 mg/dL (0.40-1.00); Glucose, Blood 125.0 mg/dL (70-99); Potassium, Blood 3.6 mmol/L (3.5-5.5); Sodium, Blood 139.0 mmol/L (136-145)
[2024-10-23 04:34] VITALS: BP 151/84
[2024-10-23] MEDS ORDERED: Docusate Sodium/Senna 1 Tab PO PRN (06:20)
[2024-10-23] MEDS ORDERED: Polyethylene Glycol 3350 17 gm PO PRN (06:20)
--- NOTE | 2024-10-23 06:24 | NUR ---
PT MONITORED THROUGH THE SHIFT.NO ACUTE EVENTS NOTED.PT IN AFIB, CONTROLLED RATE.REPORTS THAT SOB WITH ACTIVITY HAS IMPROVED.PT C/O CONSTIPATION.MD AT BEDSIDE THIS AM,NOTIFIED OF THE CONSTIPATION.ORDERS PLACED.PT DENIES PAIN,DENIES SOB,DENIES NEEDS THIS AM.CALL LIGHT AND PT'S ITEMS WITHIN REACH.MONITORING ONGOING PER CAREPLAN.
[2024-10-23 07:54] VITALS: BP 151/97
[2024-10-23] MEDS ORDERED: AMIODARONE HCL400 M2 PO (10:11)
[2024-10-23] MEDS ORDERED: ELIQUIS5 M2 PO (10:12)
[2024-10-23] MEDS ORDERED: AMLO10 PO (10:12)
[2024-10-23] MEDS ORDERED: JARDIANCE10 MG PO (10:12)
[2024-10-23] MEDS ORDERED: METO100 PO (10:13)
--- NOTE | 2024-10-23 11:55 | NUR ---
Discharge note. Pt discharge home. Pt had a friend give her a ride. Pt reports that she feels almost back to baseline when she is up walking around the unit. Cardiology visited this morning and a plan was made to have cardioversion outpatient. Pt was given all education and information about follow up appointments and medication changes. Pt was escorted to the door with staff. All belongings were taken with the Pt.
== END 2024-10-23 11:10 | disposition home or self-care (01) | DRG 309 ==
LOC: ER 11:23 → PCU 11:24
PROVIDERS: Student in an Organized Health Care Education/Training Program; ADMIT Internal Medicine
DX: I48.19 Other persistent atrial fibrillation (principal); I13.0 Hypertensive heart and chronic kidney disease with heart failure and stage 1 through stage 4 chronic kidney disease, or unspecified chronic kidney disease; I50.32 Chronic diastolic (congestive) heart failure; K21.9 Gastro-esophageal reflux disease without esophagitis; E86.0 Dehydration; E66.9 Obesity, unspecified; E11.22 Type 2 diabetes mellitus with diabetic chronic kidney disease; N18.2 Chronic kidney disease, stage 2 (mild); K59.00 Constipation, unspecified; E78.2 Mixed hyperlipidemia; Z88.0 Allergy status to penicillin; Z88.8 Allergy status to other drugs, medicaments and biological substances; Z88.5 Allergy status to narcotic agent; Z79.899 Other long term (current) drug therapy; Z79.82 Long term (current) use of aspirin; Z90.89 Acquired absence of other organs; Z90.710 Acquired absence of both cervix and uterus; Z98.890 Other specified postprocedural states; Z68.31 Body mass index [BMI] 31.0-31.9, adult
CPT/HCPCS: 36415; 71045; 80048; 80053; 81001; 82947; 83735; 83880; 85025; 93005; 93010; 94640; 94664; 94762; 96365; 96366; 96372; 96374; 96375; 96376; 99285-25; A9270; G0378; J0282; J1650; J7030; J7050

== ENCOUNTER 2024-11-23 12:34 | Emergency (ER) | payer OTHER ==
[~2024-11-23] VITALS: Ht 160 cm; Wt 81.7 kg
[~2024-11-23 12:34] MED LIST changes: +AMIODARONE HCL400 M2 PO; +AMLO10 PO; +ELIQUIS5 M2 PO; +JARDIANCE10 MG PO; +METO100 PO
[2024-11-23 14:08] LABS: BASOPHILS ABSOLUTE AUTO 0.05 K/mm3 (0.00-0.23); BASOPHILS PERCENT AUTO 1 % (0-2); EOSINOPHILS ABSOLUTE AUTO 0.08 K/mm3 (0.00-0.68); EOSINOPHILS PERCENT AUTO 1 % (0-6); Hematocrit 43.5 % (33.0-51.0); Hemoglobin 13.8 g/dL (11.5-16.0); IMMATURE GRAN ABSOLUTE AUTO 0.02 K/mm3 (0.00-0.10); IMMATURE GRAN PERCENT AUTO 0 % (0-1); LYMPHOCYTES ABSOLUTE AUTO 2.19 K/mm3 (0.84-5.20); LYMPHOCYTES PERCENT AUTO 21 % (21-46); MONOCYTES ABSOLUTE AUTO 0.88 K/mm3 (0.16-1.47); MONOCYTES PERCENT AUTO 8 % (4-13); Mean Corpuscular HGB Conc 31.7 g/dL (31.5-36.5); Mean Corpuscular Volume 84 fL (80-100); NEUTROPHILS ABSOLUTE AUTO 7.36 K/mm3 (1.96-9.15); NEUTROPHILS PERCENT AUTO 70 % (41-73); NRBC ABSOLUTE 0.00 K/mm3 (0.00-0.02); NRBC Auto 0.0 /100 WBC (0.0-0.2); Platelet Count 309 K/mm3 (150-400); RDW Coefficient Variation 13.6 % (11.7-14.2); RDW Standard Deviation 42.1 fL (35.1-46.3)
[2024-11-23 14:10] LABS: Source, Urine Clean Catch
[2024-11-23 14:14] LABS: Bilirubin, Urine Neg (Neg); Color, Urine Yellow (P-Yellow); Glucose Qualitative, Urine 4+ (Neg); Ketones, Urine Neg (Neg); Leukocyte Esterase, Urine 1+ (Neg); Protein, Urine 1+ (Neg); Specific Gravity, Urine 1.015 (1.003-1.022); Urobilinogen, Urine NORM (Normal)
[2024-11-23 14:21] LABS: Red Blood Cells, Urine TNTC /hpf (0-2)
[2024-11-23 14:30] LABS: Alanine Aminotransfer (ALT/SGP 24.0 U/L (12-78); Albumin, Blood 3.6 g/dL (3.4-5.0); Albumin/Globulin Ratio 0.9 (0.8-1.8); Anion Gap 7.0 mmol/L (3-11); Aspartate Aminotrans (AST/SGOT 18.0 U/L (12-37); Bilirubin, Total 0.5 mg/dL (0.1-1.0); Blood Urea Nitrogen 17.0 mg/dL (8-24); CO2, Blood 26.0 mmol/L (21-32); Calcium, Blood 8.9 mg/dL (8.5-10.1); Chloride, Blood 107.0 mmol/L (98-108); Creatinine, Blood 0.8 mg/dL (0.40-1.00); Globulin, Blood 4.0 g/dL (2.2-4.0); Glucose, Blood 132.0 mg/dL (70-99); Potassium, Blood 3.9 mmol/L (3.5-5.5); Sodium, Blood 136.0 mmol/L (136-145); Total Protein, Blood 7.6 g/dL (6.4-8.2)
[2024-11-23] MEDS ORDERED: Nitrofurantoin/Nitrofuran Mac 100 MG Cap PO ONE (17:20)
[2024-11-23] MEDS ORDERED: PREPARATION H C26 GM TOP (17:22)
[2024-11-23] MEDS ORDERED: NITR100CA PO (17:22)
[2024-11-23 18:14] VITALS: BP 141/84
[2024-11-24] MEDS ORDERED: Amiodarone HCl200 MG PO (06:20)
[2024-11-24] MEDS ORDERED: Acetaminophen325 M1 PO (06:20)
[2024-11-24] MEDS ORDERED: ALBU90OI INH (06:20)
[2024-11-24] MEDS ORDERED: VITAMIN D310 MC1 PO (06:22)
[2024-11-24] MEDS ORDERED: ATOR20 PO (06:22)
[2024-11-24] MEDS ORDERED: Hair, Skin & N1 EACH PO (06:23)
[2024-11-24] MEDS ORDERED: NEOPOLHCSU BOTHEYES (06:24)
[2024-11-24] MEDS ORDERED: OFLOXACIN5 M9 BOTHEYES (06:25)
[2024-11-24] MEDS ORDERED: PREDNISOLO15 MG/5 ML BOTHEYES (06:26)
[2024-11-26] MEDS ORDERED: NITR100CA PO (08:18)
== END 2024-11-23 18:15 | disposition home or self-care (01) ==
LOC: ER 12:34
PROVIDERS: Physician Assistant
DX: K64.4 Residual hemorrhoidal skin tags (principal); N39.0 Urinary tract infection, site not specified; I10 Essential (primary) hypertension; I48.91 Unspecified atrial fibrillation; E11.9 Type 2 diabetes mellitus without complications; K21.9 Gastro-esophageal reflux disease without esophagitis; E78.5 Hyperlipidemia, unspecified; Z88.6 Allergy status to analgesic agent; Z88.8 Allergy status to other drugs, medicaments and biological substances; Z79.01 Long term (current) use of anticoagulants; Z79.899 Other long term (current) drug therapy
CPT/HCPCS: 36415; 74177; 80048; 80053; 81001; 82272; 85025; 85610; 87077; 87086; 87186; 99284-25; A9270; Q9967